=== PATIENT | male | born 1990 ===

== ENCOUNTER 2018-05-17 17:52 | Inpatient (IN) | payer OTHER ==
[2018-05-17 20:23] LABS: BASO # 0.1 K/uL (0.0-0.2); BASO % 0.4 % (0.0-2.0); EOS % 0.1 % (0.0-4.0); HEMOGLOBIN 14.1 g/dL (12.0-18.0); LYMPH # 1.9 K/uL (1.0-4.3); LYMPH % 14.8 % (20.0-40.0); MEAN CELL VOLUME 90.9 fl (80.0-94.0); MEAN CORPUSCULAR HEMOGLOBIN 29.5 pg (27.0-31.0); MEAN CORPUSCULAR HGB CONC 32.5 g/dL (33.0-37.0); MEAN PLATELET VOLUME 9.1 fl (7.2-11.7); MONO # 0.7 K/uL (0.0-0.8); MONO % 5.2 % (0.0-10.0); NEUT # 10.2 K/uL (1.8-7.0); NEUT % 79.5 % (50.0-75.0); RBC 4.79 Mil/uL (4.40-5.90); RED CELL DISTRIBUTION WIDTH 13.7 % (11.5-14.5); WHITE BLOOD COUNT 12.8 K/uL (4.8-10.8)
[2018-05-17 20:36] LABS: BLOOD UREA NITROGEN 14 mg/dl (9-20); CALCIUM 9.8 mg/dL (8.4-10.2); GFR NON-AFRICAN AMERICAN > 60
[2018-05-17 20:39] LABS: ACETAMINOPHEN < 10.0 ug/ml (10.0-30.0); SALICYLATE < 1.0 mg/dl
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
[2018-05-18 01:00] VITALS: O2SAT 98
[2018-05-18 01:22] LABS: URINE BACTERIA RARE (<OCC); URINE BILIRUBIN NEGATIVE (NEGATIVE); URINE BLOOD NEGATIVE (NEGATIVE); URINE CLARITY SLIGHTY-CLOUDY (Clear); URINE COLOR YELLOW (YELLOW); URINE GLUCOSE (UA) NEG (NEGATIVE); URINE LEUKOCYTE ESTERASE NEG Leu/uL (Negative); URINE PROTEIN 30 mg/dL (NEGATIVE)
[2018-05-18 01:35] LABS: BARBITURATES, UR NEGATIVE (NEGATIVE); BENZODIAZEPINES, UR NEGATIVE (NEGATIVE); OPIATES, UR NEGATIVE (NEGATIVE); PHENCYCLIDINE, UR NEGATIVE (NEGATIVE)
[2018-05-18] MEDS ORDERED: Magnesium Hydroxide Susp 30 ml UD PO PRN (02:11)
[2018-05-18] MEDS ORDERED: Alum-Mag Hydrox-Simethicone Susp (30 mL) PO PRN (02:11)
[2018-05-18] MEDS ORDERED: DiphenhydrAMINE 50 mg/ml Inj IM PRN (02:11)
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
--- NOTE | 2018-05-18 08:23 | CARD ---
APPROVED REPORT Date of service: 05/17/2018 EKG Measurement Heart [id number] <Conclusion> Normal sinus rhythm Early repolarization Borderline ECG
[2018-05-18] MEDS ORDERED: Risperidone M tab 1 MG PO STA (11:46)
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
--- NOTE | 2018-05-18 15:13 | CP.PCM.CON ---
History of Present Illness - History of Present Illness History of Present Illness: 27 yo male with history of schizophrenia and schizoaffective DO admitted to psyche unit because of disorganized thoughts and aggressive behaviour. Review of Systems - Review of Systems All systems: reviewed and no additional remarkable complaints except (aside from those mentioned above, 12 point system review were negative by me) Past Patient History - Infectious Disease Hx of Infectious Diseases: None - Past Social History Smoking Status: Never Smoked Chewing Tobacco Use: No Cigar Use: No Alcohol: None Drugs: Denies - CARDIAC Hx Cardiac Disorders: No - PULMONARY Hx Respiratory Disorders: No Hx Tuberculosis: No - NEUROLOGICAL Hx Neurological Disorder: No HX Cerebrovascular Accident: No Hx Seizures: No - HEENT Hx HEENT Problems: No - RENAL Hx Chronic Kidney Disease: No - ENDOCRINE/METABOLIC Hx Endocrine Disorders: No - HEMATOLOGICAL/ONCOLOGICAL Hx Blood Disorders: No Hx Cancer: No Hx Human Immunodeficiency Virus (HIV): No - INTEGUMENTARY Hx Dermatological Problems: No - MUSCULOSKELETAL/RHEUMATOLOGICAL Hx Musculoskeletal Disorders: No - GASTROINTESTINAL Hx Gastrointestinal Disorders: No - GENITOURINARY/GYNECOLOGICAL Hx Genitourinary Disorders: No Hx Sexually Transmitted Disorders: No - PSYCHIATRIC Hx Schizophrenia: Yes - SURGICAL HISTORY Hx Surgeries: Yes Other/Comment: L ear Sx - ANESTHESIA Hx Anesthesia: Yes Hx Anesthesia Reactions: No Meds Allergies/Adverse Reactions: Allergies Allergy/AdvReac Type Severity Reaction Status Date / Time No Known Allergies Allergy Verified 05/17/18 17:53 - Medications Medications: Current Medications Acetaminophen (Tylenol 325mg Tab) 650 mg PO Q4 PRN PRN Reason: Pain, moderate (4-7) Al Hydrox/Mg Hydrox/Simethicone (Maalox Plus 30 Ml) 30 ml PO Q4 PRN PRN Reason: Dyspepsia Benztropine Mesylate (Cogentin) 1 mg PO HS ALBA Diphenhydramine HCl (Benadryl) 50 mg IM Q6 PRN PRN Reason: Extrapyramidal S/S Unable PO Diphenhydramine HCl (Benadryl) 50 mg PO Q6 PRN PRN Reason: Extrapyramidal Symptoms Diphenhydramine HCl (Benadryl) 50 mg PO HS PRN PRN Reason: Sleep Divalproex Sodium (Depakote Er(Once Daily)) 1,000 mg PO HS ALBA Haloperidol (Haldol) 5 mg PO Q4 PRN PRN Reason: Agitation Haloperidol Lactate (Haldol) 5 mg IM Q4 PRN PRN Reason: Agitation, Unable to Take PO Lorazepam (Ativan) 2 mg IM Q4 PRN PRN Reason: Anxiety/Agitation,Unable PO Lorazepam (Ativan) 1 mg PO Q8 PRN PRN Reason: Anxiety/Agitation Magnesium Hydroxide (Milk Of Magnesia) 30 ml PO HS PRN PRN Reason: Constipation Risperidone (Risperdal M-Tab) 2 mg PO HS ALBA Risperidone (Risperdal M-Tab) 1 mg PO DAILY ALBA Physical Exam - Constitutional Appears: No Acute Distress - Head Exam Head Exam: ATRAUMATIC - Eye Exam Eye Exam: absent: Scleral icterus - ENT Exam ENT Exam: Mucous Membranes Moist - Neck Exam Neck exam: Negative for: Meningismus - Respiratory Exam Respiratory Exam: absent: Rales, Rhonchi, Wheezes, Respiratory Distress - Cardiovascular Exam Cardiovascular Exam: REGULAR RHYTHM, +S1, +S2 - GI/Abdominal Exam GI & Abdominal Exam: Soft. absent: Tenderness - Rectal Exam Rectal Exam: Deferred - Neurological Exam Neurological exam: Alert, Oriented x3 - Psychiatric Exam Psychiatric exam: Normal Affect - Skin Skin Exam: Dry, Intact Results - Vital Signs Recent Vital Signs: Last Vital Signs Temp 98.2 F 05/18/18 09:00 Pulse 86 05/18/18 09:00 Resp 18 05/18/18 09:00 BP 132/69 05/18/18 09:00 Pulse Ox 98 05/18/18 00:59 - Labs Result Diagrams: 05/17/18 20:20 05/17/18 20:20 Labs: Laboratory Results - last 24 hr 05/17/18 05/17/18 05/17/18 20:20 20:20 20:20 WBC 12.8 H RBC 4.79 Hgb 14.1 Hct 43.5 MCV 90.9 MCH 29.5 MCHC 32.5 L RDW 13.7 Plt Count 222 MPV 9.1 Neut % (Auto) 79.5 H Lymph % (Auto) 14.8 L [place] % (Auto) 5.2 Eos % (Auto) 0.1 Baso % (Auto) 0.4 Neut # (Auto) 10.2 H Lymph # (Auto) 1.9 [place] # (Auto) 0.7 Eos # (Auto) 0.0 Baso # (Auto) 0.1 Sodium 141 Potassium 3.8 Chloride 105 Carbon Dioxide 12 L Anion Gap 28 H BUN 14 Creatinine 1.1 Est GFR ( Amer) > 60 Est GFR (Non-Af Amer) > 60 Random Glucose 115 H Hemoglobin A1c Calcium 9.8 Triglycerides Cholesterol LDL Cholesterol Direct HDL Cholesterol Thyroxine (T4) TSH 3rd Generation Urine Color Urine Clarity Urine pH Ur Specific [place] Urine Protein Urine Glucose (UA) Urine Ketones Urine Blood Urine Nitrate Urine Bilirubin Urine Urobilinogen Ur Leukocyte Esterase Urine Microscopic WBC Urine Bacteria Hyaline Casts Salicylates < 1.0 Urine Opiates Screen Urine Methadone Screen Acetaminophen < 10.0 L Ur Barbiturates Screen Ur Phencyclidine Scrn Ur Amphetamines Screen U Benzodiazepines Scrn U Oth Cocaine Metabols U Cannabinoids Screen Alcohol, Quantitative < 10 05/18/18 05/18/18 05/18/18 01:08 01:08 08:10 WBC RBC Hgb Hct MCV MCH MCHC RDW Plt Count MPV Neut % (Auto) Lymph % (Auto) [place] % (Auto) Eos % (Auto) Baso % (Auto) Neut # (Auto) Lymph # (Auto) [place] # (Auto) Eos # (Auto) Baso # (Auto) Sodium Potassium Chloride Carbon Dioxide Anion Gap BUN Creatinine Est GFR ( Amer) Est GFR (Non-Af Amer) Random Glucose Hemoglobin A1c Calcium Triglycerides 88 Cholesterol 120 LDL Cholesterol Direct 57 HDL Cholesterol 45 Thyroxine (T4) 9.36 TSH 3rd Generation 4.73 H Urine Color Yellow Urine Clarity Slighty-cloudy Urine pH 6.0 Ur Specific [place] 1.028 Urine Protein 30 Urine Glucose (UA) Neg Urine Ketones Negative Urine Blood Negative Urine Nitrate Negative Urine Bilirubin Negative Urine Urobilinogen 2.0 Ur Leukocyte Esterase Neg Urine Microscopic WBC 4 Urine Bacteria Rare Hyaline Casts 6-10 H Salicylates Urine Opiates Screen Negative Urine Methadone Screen Negative Acetaminophen Ur Barbiturates Screen Negative Ur Phencyclidine Scrn Negative Ur Amphetamines Screen Negative U Benzodiazepines Scrn Negative U Oth Cocaine Metabols Negative U Cannabinoids Screen Negative Alcohol, Quantitative 05/18/18 08:10 WBC RBC Hgb Hct MCV MCH MCHC RDW Plt Count MPV Neut % (Auto) Lymph % (Auto) [place] % (Auto) Eos % (Auto) Baso % (Auto) Neut # (Auto) Lymph # (Auto) [place] # (Auto) Eos # (Auto) Baso # (Auto) Sodium Potassium Chloride Carbon Dioxide Anion Gap BUN Creatinine Est GFR ( Amer) Est GFR (Non-Af Amer) Random Glucose Hemoglobin A1c 5.3 Calcium Triglycerides Cholesterol LDL Cholesterol Direct HDL Cholesterol Thyroxine (T4) TSH 3rd Generation Urine Color Urine Clarity Urine pH Ur Specific [place] Urine Protein Urine Glucose (UA) Urine Ketones Urine Blood Urine Nitrate Urine Bilirubin Urine Urobilinogen Ur Leukocyte Esterase Urine Microscopic WBC Urine Bacteria Hyaline Casts Salicylates Urine Opiates Screen Urine Methadone Screen Acetaminophen Ur Barbiturates Screen Ur Phencyclidine Scrn Ur Amphetamines Screen U Benzodiazepines Scrn U Oth Cocaine Metabols U Cannabinoids Screen Alcohol, Quantitative Assessment & Plan (1) Disorganized thought process Status: Acute Comment: psyche is managing (2) Aggressive behavior Status: Acute Comment: psyche is managing
[2018-05-18] MEDS: Risperidone M TAB 2 MG PO SCH (21:11)
[2018-05-18] MEDS ORDERED: Divalproex 500 mg ER (ONCE DAILY formulation) PO SCH (22:00)
[2018-05-19] MEDS: Risperidone M tab 1 MG PO SCH (09:49)
--- NOTE | 2018-05-19 15:16 | PCM.PYCHPN ---
Psychiatric Progress Note - Psychiatric Progress Note Patient seen today, length of contact: pt evaluated discussed with team chart reviewed Patient Chief Complaint: I want my family to obey god Problems Identified/Issues Discussed: pt on evaluation, anxious, irritable, religiously preoccupied, continues to report auditory hallucination hearing god talking to him, pt presenting with thought blocking , internally preoccupied ,concrete thought process and limited insight into illness denied command hallucinations, denied suicidal or homicidal ideation Medical Problems: pt has hx of schizoaffective disorder, hx of previous hospitalizations but unable to give details DSM 5 Symptoms Update: 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 Medication Change: No Medical Record Reviewed: No Mental Status Examination - Cognitive Function Orientation: Person, Place, Situation Memory: Intact Attention: WNL Concentration: Poor Association: Loose Fund of Knowledge: Poor Decription of patient's judgement and insights: poor insight and judgment - Mood Mood: Anxious - Affect Affect: Constricted - Formal Thought Process Formal Thought Process: Hallucinations, Delusions, Paranoia - Suicidal Ideation Suicidal Ideation: No - Homicidal Ideation Homicidal Ideation: No Goal/Treatment Plan - Goal/Treatment Plan Need for Continued Stay: Severe depression anxiety, Discharge may exacerbated symptoms Progress Toward Problem(s) and Goals/Treatment Plan: risperidone mtab 2mg qhs and 1 mg daily depakote 500mg qhs cogentin 1mg qhs will encourage medication compliance . group and supportive therapy
[2018-05-19] MEDS: Risperidone M TAB 2 MG PO SCH (21:11)
[2018-05-19] MEDS ORDERED: Divalproex 500 mg DR(BID formulation) PO SCH (22:00)
[2018-05-20] MEDS: Risperidone M tab 1 MG PO SCH ×2 (10:03→21:29)
--- NOTE | 2018-05-20 14:13 | PCM.PYCHPN ---
Psychiatric Progress Note - Psychiatric Progress Note Patient seen today, length of contact: pt evaluated discussed with team chart reviewed Patient Chief Complaint: I had a hard time falling asleep yesterday Problems Identified/Issues Discussed: pt on evaluation,reported poor sleep with early insomnia , continues to be religiously preoccupied, continues to report auditory hallucination hearing god talking to him, pt presenting with thought blocking , internally preoccupied ,concrete thought process and limited insight into illness denied command hallucinations, denied suicidal or homicidal ideation Medical Problems: pt has hx of schizoaffective disorder, hx of previous hospitalizations but unable to give details Medication Change: Yes (increase depakote ) Medical Record Reviewed: Yes Mental Status Examination - Cognitive Function Orientation: Person, Place, Situation Memory: Intact Attention: WNL Concentration: Poor Association: Loose Fund of Knowledge: Poor Decription of patient's judgement and insights: poor insight and judgment - Mood Mood: Anxious - Affect Affect: Constricted - Formal Thought Process Formal Thought Process: Hallucinations, Delusions, Paranoia - Suicidal Ideation Suicidal Ideation: No - Homicidal Ideation Homicidal Ideation: No Goal/Treatment Plan - Goal/Treatment Plan Need for Continued Stay: Severe depression anxiety, Discharge may exacerbated symptoms Progress Toward Problem(s) and Goals/Treatment Plan: increase risperidone mtab 3mg qhs and 1 mg daily increase depakote 750mg qhs cogentin 1mg qhs will encourage medication compliance . group and supportive therapy
[2018-05-20] MEDS: Divalproex 250 mg ER (ONCE DAILY formulation) PO SCH (21:28)
[2018-05-21] MEDS: Risperidone M tab 1 MG PO SCH ×2 (09:08→21:10)
--- NOTE | 2018-05-21 12:45 | PCM.PYCHPN ---
Psychiatric Progress Note - Psychiatric Progress Note Patient seen today, length of contact: pt evaluated discussed with team chart reviewed Patient Chief Complaint: I slept better yesterday Problems Identified/Issues Discussed: pt seen in his room, reported improved sleep, pt less intrusive but continues to be religiously pre occupied, constantly reading in the bible , continues to report communicating with god , compliant with medications, no reported side ef fects denied command hallucinations, denied suicidal or homicidal ideation Medical Problems: pt has hx of schizoaffective disorder, hx of previous hospitalizations but unab le to give details DSM 5 Symptoms Update: schizoaffective disorder borderline intellectual function Medication Change: No Medical Record Reviewed: Yes Mental Status Examination - Cognitive Function Orientation: Person, Place, Situation Memory: Intact Attention: WNL Concentration: Poor Association: Loose Fund of Knowledge: Poor Decription of patient's judgement and insights: poor insight and judgment - Mood Mood: Anxious - Affect Affect: Constricted - Formal Thought Process Formal Thought Process: Hallucinations, Delusions, Paranoia - Suicidal Ideation Suicidal Ideation: No - Homicidal Ideation Homicidal Ideation: No Goal/Treatment Plan - Goal/Treatment Plan Need for Continued Stay: Severe depression anxiety, Discharge may exacerbated symptoms Progress Toward Problem(s) and Goals/Treatment Plan: risperidone mtab 3mg qhs and 1 mg daily depakote 750mg qhs cogentin 1mg qhs group and supportive therapy
[2018-05-21] MEDS: Divalproex 250 mg ER (ONCE DAILY formulation) PO SCH (21:10)
[2018-05-22] MEDS: Risperidone M tab 1 MG PO SCH ×2 (08:38→21:05)
--- NOTE | 2018-05-22 13:34 | PCM.PYCHPN ---
Psychiatric Progress Note - Psychiatric Progress Note Patient seen today, length of contact: pt evaluated discussed with team chart reviewed Patient Chief Complaint: where will I go from here Problems Identified/Issues Discussed: pt seen in day room, continues to be religiously pre occupied, constantly reading in the bible , continues to report communicating with god , no reported side effects with increasing risperidone and depakote compliant with medicatio ns, pt reported feeling worried as he knows his mother would not take him back home denied command hallucinations, denied suicidal or homicidal ideation Medical Problems: pt has hx of schizoaffective disorder, hx of previous hospitalizations but unable to give details DSM 5 Symptoms Update: 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 Medication Change: No Medical Record Reviewed: Yes Mental Status Examination - Cognitive Function Orientation: Person, Place, Situation Memory: Intact Attention: WNL Concentration: Poor Association: Loose Fund of Knowledge: Poor Decription of patient's judgement and insights: poor insight and judgment - Mood Mood: Anxious - Affect Affect: Constricted - Formal Thought Process Formal Thought Process: Hallucinations, Delusions, Paranoia - Suicidal Ideation Suicidal Ideation: No - Homicidal Ideation Homicidal Ideation: No Goal/Treatment Plan - Goal/Treatment Plan Need for Continued Stay: Severe depression anxiety, Discharge may exacerbated symptoms Progress Toward Problem(s) and Goals/Treatment Plan: risperidone mtab 3mg qhs and 1 mg daily depakote 750mg qhs cogentin 1mg qhs group and supportive therapy
[2018-05-22] MEDS: Divalproex 250 mg ER (ONCE DAILY formulation) PO SCH (21:05)
[2018-05-23] MEDS: Risperidone M tab 1 MG PO SCH (11:42)
--- NOTE | 2018-05-23 14:41 | PCM.PYCHPN ---
Psychiatric Progress Note - Psychiatric Progress Note Patient seen today, length of contact: pt evaluated discussed with team chart reviewed Patient Chief Complaint: I still have hard time sleeping Problems Identified/Issues Discussed: pt seen in day room, reported decreased sleep with early insomnia, pt continues to present with labile affect with episodes of agitation continues to be religiously pre occupied, constantly reading in the bible , discussed increasing dose of depakote and adding trazodone for insomnia, no reported side effects , encouraged medication compliance , pt reported feeling worried as he knows his mother would not take him back home denied command hallucinations, denied suicidal or homicidal ideation Medical Problems: pt has hx of schizoaffective disorder, hx of previous hospitalizations but unable to give details DSM 5 Symptoms Update: 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 Medication Change: Yes (increase depakote ) Medical Record Reviewed: Yes Mental Status Examination - Cognitive Function Orientation: Person, Place, Situation Memory: Intact Attention: WNL Concentration: Poor Association: Loose Fund of Knowledge: Poor Decription of patient's judgement and insights: poor insight and judgment - Mood Mood: Anxious - Affect Affect: Constricted - Formal Thought Process Formal Thought Process: Hallucinations, Delusions, Paranoia - Suicidal Ideation Suicidal Ideation: No - Homicidal Ideation Homicidal Ideation: No Goal/Treatment Plan - Goal/Treatment Plan Need for Continued Stay: Severe depression anxiety, Discharge may exacerbated symptoms Progress Toward Problem(s) and Goals/Treatment Plan: risperidone mtab 4mg qhs depakote 1000mg qhs cogentin 1mg qhs trazodone 50mg qhs group and supportive therapy
[2018-05-23] MEDS: Risperidone M TAB 2 MG PO SCH (21:07)
[2018-05-23] MEDS: Divalproex 500 mg ER (ONCE DAILY formulation) PO SCH (21:07)
--- NOTE | 2018-05-24 14:57 | PCM.PYCHPN ---
Psychiatric Progress Note - Psychiatric Progress Note Patient seen today, length of contact: pt evaluated discussed with team chart reviewed Patient Chief Complaint: I only need medicine to sleep I do not need any other medicine Problems Identified/Issues Discussed: pt seen in day room, continues to be religously preoccupied, seen constantly reading in the bible, pt presenting with thought blocking and internally preoccupied , continues to report auditory hallucinations hearing god talking to him, pt continues to express homicidal thoughts towards his sister stating if she does not repent he will have to end her life, pt with poor insight into illness requesting to be discharged, pt refusing medication through the day with no insight stating he only takes medications at night just to be able to sleep Medical Problems: pt has hx of schizoaffective disorder, hx of previous hospitalizations but unable to give details DSM 5 Symptoms Update: schizoaffective disorder bipolar type Medication Change: No Medical Record Reviewed: Yes Mental Status Examination - Cognitive Function Orientation: Person, Place, Situation Memory: Intact Attention: WNL Concentration: Poor Association: Loose Fund of Knowledge: Poor Decription of patient's judgement and insights: poor insight and judgment - Mood Mood: Anxious - Affect Affect: Constricted - Formal Thought Process Formal Thought Process: Hallucinations, Delusions, Paranoia - Suicidal Ideation Suicidal Ideation: No - Homicidal Ideation Homicidal Ideation: Yes Goal/Treatment Plan - Goal/Treatment Plan Need for Continued Stay: Severe depression anxiety, Discharge may exacerbated symptoms Progress Toward Problem(s) and Goals/Treatment Plan: pt at current mental status continues to report homicidal ideations towards family members has no insight into illness partially compliant with medications , requesting to be discharged , at current mental status danger to self and others will be referred for screening for involuntary admission for further stabilization risperidone mtab 4mg qhs depakote 1000mg qhs cogentin 1mg qhs trazodone 50mg qhs group and supportive therapy
[2018-05-24] MEDS: Divalproex 500 mg ER (ONCE DAILY formulation) PO SCH (21:25)
[2018-05-24] MEDS: Risperidone M TAB 2 MG PO SCH (21:25)
--- NOTE | 2018-05-25 14:45 | PCM.PYCHPN ---
Psychiatric Progress Note - Psychiatric Progress Note Patient seen today, length of contact: pt evaluated discussed with team chart reviewed Patient Chief Complaint: I follow the commands of god Problems Identified/Issues Discussed: pt evaluated with treatment continues to be religiously preoccupied , with delusional thought process reporting he communicates with god through sign language he draws in the air, pt continues to report that he is a servant of god and thus has to help others to comply with his orders, pt has no insight into his illness, justifying his violence towards his family members as being his duty towards god commands, also has no insight in reference to the need for medications, stating he only takes medications at night to help him sleep but does not believe he i in need for any medicine to help with his current mental status pt refusing medication through the day he denied thoughts of self harm or homicidal ideation on the unit Medical Problems: pt has hx of schizoaffective disorder, hx of previous hospitalizations but unable to give details DSM 5 Symptoms Update: 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 Medication Change: Yes (increase risperidone ) Medical Record Reviewed: Yes Mental Status Examination - Cognitive Function Orientation: Person, Place, Situation Memory: Intact Attention: WNL Concentration: Poor Association: Loose Fund of Knowledge: Poor Decription of patient's judgement and insights: poor insight and judgment - Mood Mood: Anxious - Affect Affect: Constricted - Formal Thought Process Formal Thought Process: Hallucinations, Delusions, Paranoia - Suicidal Ideation Suicidal Ideation: No - Homicidal Ideation Homicidal Ideation: Yes Goal/Treatment Plan - Goal/Treatment Plan Need for Continued Stay: Severe depression anxiety, Discharge may exacerbated symptoms Progress Toward Problem(s) and Goals/Treatment Plan: risperidone mtab 6mg qhs depakote 1000mg qhs / follow up on depakote level cogentin 1mg qhs trazodone 50mg qhs group and supportive therapy pt to be evaluated by JAKOB
[2018-05-25] MEDS: Risperidone M TAB 2 MG PO SCH (21:12)
[2018-05-25] MEDS: Divalproex 500 mg ER (ONCE DAILY formulation) PO SCH (21:12)
--- NOTE | 2018-05-26 14:52 | PCM.PYCHPN ---
Psychiatric Progress Note - Psychiatric Progress Note Patient seen today, length of contact: pt evaluated discussed with team chart reviewed Patient Chief Complaint: when can I leave Problems Identified/Issues Discussed: pt evaluated , requesting to be discharged with limited insight into illness, continues to be religiously preoccupied, talking about god commands to him and his mission on earth to fulfill the commands, patient continues to report homicidal ideations towards family members justifying them by stating they deserved to be punished as they do not repent, both the mother and sister have verbalized being concerned about their safety due to the repetitive violence of the patient towards them pt presenting with thought blocking and at times appears internally preoccupied continues to have auditory hallucinations, he also continues to refuse AM medications as he does not have insight into his need for psychiatric treatment he denied thoughts of self harm or homicidal ideation on the unit Medical Problems: pt has hx of schizoaffective disorder, hx of previous hospitalizations but unable to give details DSM 5 Symptoms Update: 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 Medication Change: No Medical Record Reviewed: Yes Mental Status Examination - Cognitive Function Orientation: Person, Place, Situation Memory: Intact Attention: WNL Concentration: Poor Association: Loose Fund of Knowledge: Poor Decription of patient's judgement and insights: poor insight and judgment - Mood Mood: Anxious - Affect Affect: Constricted - Formal Thought Process Formal Thought Process: Hallucinations, Delusions, Paranoia - Suicidal Ideation Suicidal Ideation: No - Homicidal Ideation Homicidal Ideation: Yes Goal/Treatment Plan - Goal/Treatment Plan Need for Continued Stay: Severe depression anxiety, Discharge may exacerbated symptoms Progress Toward Problem(s) and Goals/Treatment Plan: pt continues to be danger to others, continues to verbalize homicidal thoughts,requesting to be discharged , has no insight into illness will be referred for screening for involuntary admission risperidone mtab 6mg qhs depakote 1000mg qhs / depakote level 67 cogentin 1mg qhs trazodone 50mg qhs group and supportive therapy
[2018-05-26 20:43] LABS: URINE BILIRUBIN NEGATIVE (NEGATIVE); URINE BLOOD NEGATIVE (NEGATIVE); URINE CLARITY CLEAR (Clear); URINE COLOR YELLOW (YELLOW); URINE GLUCOSE (UA) NEG (NEGATIVE); URINE LEUKOCYTE ESTERASE NEG Leu/uL (Negative); URINE PROTEIN NEGATIVE (NEGATIVE)
[2018-05-26 21:05] LABS: ALB/GLOB RATIO 1.5 (1.0-2.1); ALBUMIN 4.5 g/dL (3.5-5.0); ALT/SGPT 27 U/L (21-72); AST/SGOT 19 U/L (17-59); BLOOD UREA NITROGEN 16 mg/dl (9-20); CALCIUM 9.2 mg/dL (8.4-10.2); GFR NON-AFRICAN AMERICAN > 60
[2018-05-26 21:07] LABS: BASO # 0.1 K/uL (0.0-0.2); BASO % 0.8 % (0.0-2.0); EOS # 0.1 K/uL (0.0-0.7); EOS % 1.1 % (0.0-4.0); HEMOGLOBIN 14.2 g/dL (12.0-18.0); LYMPH # 2.6 K/uL (1.0-4.3); LYMPH % 29.6 % (20.0-40.0); MEAN CELL VOLUME 88.4 fl (80.0-94.0); MEAN PLATELET VOLUME 9.2 fl (7.2-11.7); MONO # 0.7 K/uL (0.0-0.8); NEUT # 5.3 K/uL (1.8-7.0); NEUT % 60.5 % (50.0-75.0); NRBC % 0.5 % (0.0-0.0); RBC 4.75 Mil/uL (4.40-5.90); RED CELL DISTRIBUTION WIDTH 13.7 % (11.5-14.5); WHITE BLOOD COUNT 8.8 K/uL (4.8-10.8)
[2018-05-26] MEDS: Risperidone M TAB 2 MG PO SCH (21:25)
[2018-05-26] MEDS: Divalproex 500 mg ER (ONCE DAILY formulation) PO SCH (21:25)
--- NOTE | 2018-05-27 18:29 | PCM.PYCHPN ---
Psychiatric Progress Note - Psychiatric Progress Note Patient seen today, length of contact: pt evaluated discussed with team chart reviewed Patient Chief Complaint: does not know why i am in the hospital i do not want mental illness Problems Identified/Issues Discussed: alteration in cognition alteration in mood alteration in self care Medical Problems: per chart Diagnostic Results: per psychiatry per medicine per nursing per social work per recreational therapy Medication Change: No Medical Record Reviewed: Yes Consults ordered or reviewed: pt seen by hospitalist Mental Status Examination - Cognitive Function Orientation: Person, Place, Situation Memory: Intact Attention: WNL Concentration: Poor Association: Loose Fund of Knowledge: Poor - Mood Mood: Anxious - Affect Affect: Constricted - Formal Thought Process Formal Thought Process: Hallucinations, Delusions, Paranoia - Suicidal Ideation Suicidal Ideation: No - Homicidal Ideation Homicidal Ideation: Yes Goal/Treatment Plan - Goal/Treatment Plan Need for Continued Stay: Severe depression anxiety, Discharge may exacerbated symptoms Progress Toward Problem(s) and Goals/Treatment Plan: inpt milieu adjust meds per status team is attempting communication with family related to discharge planning team Estimated Date of D/C: 06/01/18 - Smoking Cessation Smoking Cessation Initiated: No Reason for not providing: pt defer
[2018-05-27] MEDS: Divalproex 500 mg ER (ONCE DAILY formulation) PO SCH (21:05)
[2018-05-27] MEDS: Risperidone M TAB 2 MG PO SCH (21:05)
--- NOTE | 2018-05-28 08:38 | PCM.PYCHPN ---
Psychiatric Progress Note - Psychiatric Progress Note Patient seen today, length of contact: Pt evaluated, case discussed w/ team, chart reviewed Patient Chief Complaint: "Yonathan told me 2 be silent." Problems Identified/Issues Discussed: Patient continues to be bizarre, religiously preoccupied, internally preoccupied, observed laughing to himself. Patient met with the entry writer, but refused to talk, just shaking his head yes and no and wrote down: "Yonathan told me 2 be silent." He denies acute ideation to harm himself or his family. Medication Change: No Medical Record Reviewed: Yes Consults ordered or reviewed: Medicine consult Mental Status Examination - Cognitive Function Orientation: Person, Place, Situation Memory: Intact Decription of patient's judgement and insights: Poor I/J - Affect Affect: Other (Labile) - Formal Thought Process Formal Thought Process: Hallucinations, Delusions, Paranoia Psychotic Thoughts and Behaviors: +Church preoccupation - Suicidal Ideation Suicidal Ideation: No - Homicidal Ideation Homicidal Ideation: No Goal/Treatment Plan - Goal/Treatment Plan Need for Continued Stay: Remain at risks for inpatient hospitalization, Severe depression anxiety, Discharge may exacerbated symptoms Progress Toward Problem(s) and Goals/Treatment Plan: Schizoaffective Disorder -Continue current medications -Individual and group therapy -Medicine consult -Psychoeducation -Disposition planning
[2018-05-28] MEDS: Risperidone M TAB 2 MG PO SCH (21:01)
[2018-05-28] MEDS: Divalproex 500 mg ER (ONCE DAILY formulation) PO SCH (21:01)
--- NOTE | 2018-05-29 08:44 | PCM.PYCHPN ---
Psychiatric Progress Note - Psychiatric Progress Note Patient seen today, length of contact: Pt evaluated, case discussed w/ team, chart reviewed Patient Chief Complaint: Mormonism preoccupation Problems Identified/Issues Discussed: Patient refusing to talk but wrote a note saying that he can not speak until instructed by his father (God). Patient continues to be bizarre, religiously preoccupied, internally preoccupied, observed laughing to himself. Medication Change: No Medical Record Reviewed: Yes Consults ordered or reviewed: Medicine consult Mental Status Examination - Cognitive Function Orientation: Person, Place, Situation Memory: Intact Decription of patient's judgement and insights: Poor I/J - Affect Affect: Other (Labile) - Formal Thought Process Formal Thought Process: Hallucinations, Delusions, Paranoia Psychotic Thoughts and Behaviors: +Mormonism preoccupation - Suicidal Ideation Suicidal Ideation: No - Homicidal Ideation Homicidal Ideation: No Goal/Treatment Plan - Goal/Treatment Plan Need for Continued Stay: Remain at risks for inpatient hospitalization, Severe depression anxiety, Discharge may exacerbated symptoms Progress Toward Problem(s) and Goals/Treatment Plan: Schizoaffective Disorder -Continue current medications -Individual and group therapy -Medicine consult -Psychoeducation -Disposition planning
[2018-05-29] MEDS: Divalproex 500 mg ER (ONCE DAILY formulation) PO SCH (21:05)
[2018-05-29] MEDS: Risperidone M TAB 2 MG PO SCH (21:06)
--- NOTE | 2018-05-30 18:57 | PCM.PYCHPN ---
Psychiatric Progress Note - Psychiatric Progress Note Patient seen today, length of contact: Pt evaluated, case discussed w/ team, chart reviewed Patient Chief Complaint: does not know why i am in the hospital i do not want mental illness prefers to be addressed as "yash" Problems Identified/Issues Discussed: alteration in cognition alteration in mood alteration in self care Medical Problems: per chart Diagnostic Results: per psychiatry per medicine per nursing per social work per recreational therapy DSM 5 Symptoms Update: appears to be reaching baseline team attempting to arrange discharge planning with family Medication Change: No Medical Record Reviewed: Yes Consults ordered or reviewed: pt seen by hospitalist Mental Status Examination - Cognitive Function Orientation: Person, Place, Situation Memory: Impaired Attention: Poor Concentration: Poor Association: Loose Fund of Knowledge: Poor Decription of patient's judgement and insights: poor - Mood Mood: Anxious - Affect Affect: Other (Labile) - Formal Thought Process Formal Thought Process: Hallucinations, Delusions, Paranoia - Suicidal Ideation Suicidal Ideation: No - Homicidal Ideation Homicidal Ideation: No Goal/Treatment Plan - Goal/Treatment Plan Need for Continued Stay: Remain at risks for inpatient hospitalization, Severe depression anxiety, Discharge may exacerbated symptoms Progress Toward Problem(s) and Goals/Treatment Plan: inpt milieu adjust meds per status team is attempting communication with family related to discharge planning team Estimated Date of D/C: 06/01/18 - Smoking Cessation Smoking Cessation Initiated: No Reason for not providing: pt defers
[2018-05-30] MEDS: Divalproex 500 mg ER (ONCE DAILY formulation) PO SCH (21:16)
[2018-05-30] MEDS: Risperidone M TAB 2 MG PO SCH (21:16)
--- NOTE | 2018-05-31 14:12 | PCM.PYCHPN ---
Psychiatric Progress Note - Psychiatric Progress Note Patient seen today, length of contact: Pt evaluated, case discussed w/ team, chart reviewed Patient Chief Complaint: I only speak to people, my father ( god ) allow me to talk to Problems Identified/Issues Discussed: pt on evaluation, stated that he agrees to talk to the inspector automatic typewriter only because his father ; god allowed him to talk , stated he is selectively mute with others, based on orders he gets from god, pt continues to be religiously pre occupied stating he obeys god because he is very fearful when he thinks about hell and possibility of being in it, pt continues to have episodes of thought blocking and requested from the inspector automatic typewriter to read the note he handled the art therapist the content of which was all islam about angels and demons and indicating that pt continues to have non command auditory hallucinations pt continues to have limited insight into his illness and about his need for medications Medical Problems: pt has hx of schizoaffective disorder, hx of previous hospitalizations but unable to give details DSM 5 Symptoms Update: 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 Medication Change: Yes (start haldol) Medical Record Reviewed: Yes Mental Status Examination - Cognitive Function Orientation: Person, Place, Situation Memory: Impaired Attention: WNL Concentration: Poor Association: Loose Fund of Knowledge: Poor Decription of patient's judgement and insights: poor insight and judgment - Mood Mood: Anxious - Affect Affect: Other (Labile) Additional comments: labile - Speech Additional comments: selective mutism - Formal Thought Process Formal Thought Process: Hallucinations, Delusions, Paranoia - Suicidal Ideation Suicidal Ideation: No - Homicidal Ideation Homicidal Ideation: No Goal/Treatment Plan - Goal/Treatment Plan Need for Continued Stay: Remain at risks for inpatient hospitalization, Severe depression anxiety, Discharge may exacerbated symptoms Progress Toward Problem(s) and Goals/Treatment Plan: discontinue risperidone start haldol 10mg qhs follow up on depakote level and adjust dose accordingly Estimated Date of D/C: 06/01/18
[2018-05-31] MEDS: Divalproex 500 mg ER (ONCE DAILY formulation) PO SCH (21:22)
--- NOTE | 2018-06-01 15:23 | PCM.PYCHPN ---
Psychiatric Progress Note - Psychiatric Progress Note Patient seen today, length of contact: Pt evaluated, case discussed w/ team, chart reviewed Patient Chief Complaint: god told me I can talk today Problems Identified/Issues Discussed: pt evaluated with treatment team, less irritable and communicating more with staff, continues to be religiously preoccupied, with fixed delusion about conveying god messages to others, no reported side effects of haldol pt continues to have limited insight into his illness and about his need for medications Medical Problems: pt has hx of schizoaffective disorder, hx of previous hospitalizations but unable to give details DSM 5 Symptoms Update: 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 Medication Change: No Medical Record Reviewed: Yes Mental Status Examination - Cognitive Function Orientation: Person, Place, Situation Memory: Impaired Attention: WNL Concentration: Poor Association: Loose Fund of Knowledge: Poor Decription of patient's judgement and insights: poor insight and judgment - Mood Mood: Anxious - Affect Affect: Other (Labile) - Formal Thought Process Formal Thought Process: Hallucinations, Delusions, Paranoia - Suicidal Ideation Suicidal Ideation: No - Homicidal Ideation Homicidal Ideation: No Goal/Treatment Plan - Goal/Treatment Plan Need for Continued Stay: Remain at risks for inpatient hospitalization, Severe depression anxiety, Discharge may exacerbated symptoms Progress Toward Problem(s) and Goals/Treatment Plan: start haldol 10mg qhs, cogentin 1mg qhs follow up on depakote level and adjust dose accordingly Estimated Date of D/C: 06/17/18
[2018-06-01] MEDS: Divalproex 500 mg ER (ONCE DAILY formulation) PO SCH (21:03)
--- NOTE | 2018-06-02 13:01 | PCM.PYCHPN ---
Psychiatric Progress Note - Psychiatric Progress Note Patient seen today, length of contact: Pt evaluated, case discussed w/ team, chart reviewed Patient Chief Complaint: pt on evaluation less irritable and less labile, continues to be psychotic with roman catholic pre occupation, stating that both his mother and sister are not his biological family but he belongs to the holy family, continues to have episodes of thought blocking , denied command hallucinations, communicating more with staff members and peers, no observed changes in sleep or appetite pt denied current active suicidal or homicidal thoughts Problems Identified/Issues Discussed: pt evaluated with treatment team, less irritable and communicating more with staff, continues to be religiously preoccupied, with fixed delusion about conveying god messages to others, no reported side effects of haldol pt continues to have limited insight into his illness and about his need for medications Medical Problems: pt has hx of schizoaffective disorder, hx of previous hospitalizations but unable to give details DSM 5 Symptoms Update: schizoaffective disorder borderline intellectual function Medication Change: Yes (increase haldol) Medical Record Reviewed: Yes Mental Status Examination - Cognitive Function Orientation: Person, Place, Situation Memory: Impaired Attention: WNL Concentration: Poor Association: Loose Fund of Knowledge: Poor Decription of patient's judgement and insights: poor insight and judgment - Mood Mood: Anxious - Affect Affect: Other (Labile) - Formal Thought Process Formal Thought Process: Hallucinations, Delusions, Paranoia - Suicidal Ideation Suicidal Ideation: No - Homicidal Ideation Homicidal Ideation: No Goal/Treatment Plan - Goal/Treatment Plan Need for Continued Stay: Remain at risks for inpatient hospitalization, Severe depression anxiety, Discharge may exacerbated symptoms Progress Toward Problem(s) and Goals/Treatment Plan: increase haldol 15mg qhs, cogentin 1mg qhs depakote level 109/ decrease dose to 750mg qhs monitor pt for psychopharmacological effect and side effect profile disposition planning Estimated Date of D/C: 06/17/18
[2018-06-02] MEDS: Divalproex 250 mg ER (ONCE DAILY formulation) PO SCH (21:30)
--- NOTE | 2018-06-03 12:28 | PCM.PYCHPN ---
Psychiatric Progress Note - Psychiatric Progress Note Patient seen today, length of contact: Pt evaluated, case discussed w/ team, chart reviewed Patient Chief Complaint: I wish I could go home but I know I cant Problems Identified/Issues Discussed: pt evaluated , calmer, less labile, better communication with staff members and other peers, no reported changes in sleep or appetite, pt continues to have the fixed delusion that his job on earth is to have god's plans fulfilled and it is his duty to help his family members to repent, , continued to challenge those delusions with pt, also was able to arrange for the patient to meet with the hospital [facility] as he requested , pt denied current suicidal or homicidal ideation, denied command hallucinations , continues to have limited insight into his illness and about his need for medications Medical Problems: pt has hx of schizoaffective disorder, hx of previous hospitalizations but unable to give details DSM 5 Symptoms Update: schizoaffective disorder borderline intellectual function Medication Change: No Medical Record Reviewed: Yes Mental Status Examination - Cognitive Function Orientation: Person, Place, Situation Memory: Impaired Attention: WNL Concentration: Poor Association: Loose Fund of Knowledge: Poor Decription of patient's judgement and insights: poor insight and judgment - Mood Mood: Anxious - Affect Affect: Other (Labile) - Formal Thought Process Formal Thought Process: Hallucinations, Delusions, Paranoia - Suicidal Ideation Suicidal Ideation: No - Homicidal Ideation Homicidal Ideation: No Goal/Treatment Plan - Goal/Treatment Plan Need for Continued Stay: Remain at risks for inpatient hospitalization, Severe depression anxiety, Discharge may exacerbated symptoms Progress Toward Problem(s) and Goals/Treatment Plan: haldol 15mg qhs, cogentin 1mg qhs depakote 750mg qhs monitor pt for psychopharmacological effect and side effect profile disposition planning Estimated Date of D/C: 06/17/18
[2018-06-03] MEDS: Divalproex 250 mg ER (ONCE DAILY formulation) PO SCH (21:11)
--- NOTE | 2018-06-04 10:26 | PCM.PYCHPN ---
Psychiatric Progress Note - Psychiatric Progress Note Patient seen today, length of contact: Pt evaluated, case discussed w/ team, chart reviewed Patient Chief Complaint: pt has remained internally preoccupied and paranoid with fixed delusion that he is special person and sent on earth for a mission.pt remains with poor insight and poor judgement and need further stabilization. Medication Change: No Medical Record Reviewed: Yes Mental Status Examination - Cognitive Function Orientation: Person, Place, Situation Memory: Impaired Attention: WNL Concentration: Poor Association: Loose Fund of Knowledge: Poor - Mood Mood: Anxious - Affect Affect: Other (Labile) - Formal Thought Process Formal Thought Process: Hallucinations, Delusions, Paranoia - Suicidal Ideation Suicidal Ideation: No - Homicidal Ideation Homicidal Ideation: No Goal/Treatment Plan - Goal/Treatment Plan Need for Continued Stay: Remain at risks for inpatient hospitalization, Severe depression anxiety, Discharge may exacerbated symptoms Progress Toward Problem(s) and Goals/Treatment Plan: will continue to stabilize the pt on depakote and haldol and engage pt in therapy and groups. d/c plans as per dr leonardo. Estimated Date of D/C: 06/17/18
[2018-06-04] MEDS: Divalproex 250 mg ER (ONCE DAILY formulation) PO SCH (21:02)
--- NOTE | 2018-06-05 13:51 | PCM.PYCHPN ---
Psychiatric Progress Note - Psychiatric Progress Note Patient seen today, length of contact: Pt evaluated, case discussed w/ team, chart reviewed Patient Chief Complaint: pt has remained internally preoccupied with negative thoughts and as per family pt is still talking about hearing voices telling him to hurt the sister and therefore remains on 1:1 observation .pt has remained paranoid with fixed delusion that he is special person and sent on earth for a mission.pt remains with poor insight and poor judgement and need further stabilization. Medication Change: No Medical Record Reviewed: Yes Mental Status Examination - Cognitive Function Orientation: Person, Place, Situation Memory: Impaired Attention: WNL Concentration: Poor Association: Loose Fund of Knowledge: Poor - Mood Mood: Anxious - Affect Affect: Other (Labile) - Formal Thought Process Formal Thought Process: Hallucinations, Delusions, Paranoia - Suicidal Ideation Suicidal Ideation: No - Homicidal Ideation Homicidal Ideation: No Goal/Treatment Plan - Goal/Treatment Plan Need for Continued Stay: Remain at risks for inpatient hospitalization, Severe depression anxiety, Discharge may exacerbated symptoms Progress Toward Problem(s) and Goals/Treatment Plan: will continue to stabilize the pt on depakote and haldol and increase haldol to 5 mg daily and 15 mg hs to address the hallucinations and engage pt in therapy and groups. d/c plans as per dr leonardo. Estimated Date of D/C: 06/17/18
[2018-06-05] MEDS: Divalproex 250 mg ER (ONCE DAILY formulation) PO SCH (21:03)
--- NOTE | 2018-06-06 14:50 | PCM.PYCHPN ---
Psychiatric Progress Note - Psychiatric Progress Note Patient seen today, length of contact: Pt evaluated, case discussed w/ team, chart reviewed Patient Chief Complaint: I know god may want to end my life here Problems Identified/Issues Discussed: pt evaluated , and treatment plan discussed with mother [phone] upon pt consent pt on evaluation continues to report having direct communication with god, continues to have fixed amish delusions , also continues to think that it is his role to make sure his family members are following god demands pt denied command hallucinations , continues to have limited insight into his illness and about his need for medications Medical Problems: pt has hx of schizoaffective disorder, hx of previous hospitalizations but unable to give details DSM 5 Symptoms Update: schizoaffective disorder borderline intellectual function Medication Change: Yes (increase haldol) Medical Record Reviewed: Yes Mental Status Examination - Cognitive Function Orientation: Person, Place, Situation Memory: Impaired Attention: WNL Concentration: Poor Association: Loose Fund of Knowledge: Poor - Mood Mood: Anxious - Affect Affect: Other (Labile) - Formal Thought Process Formal Thought Process: Hallucinations, Delusions, Paranoia - Suicidal Ideation Suicidal Ideation: No - Homicidal Ideation Homicidal Ideation: No Goal/Treatment Plan - Goal/Treatment Plan Need for Continued Stay: Remain at risks for inpatient hospitalization, Severe depression anxiety, Discharge may exacerbated symptoms Progress Toward Problem(s) and Goals/Treatment Plan: increase haldol 20mg qhs, cogentin 1mg qhs depakote 750mg qhs monitor pt for psychopharmacological effect and side effect profile disposition planning Estimated Date of D/C: 06/17/18
[2018-06-06] MEDS: Divalproex 250 mg ER (ONCE DAILY formulation) PO SCH (21:02)
--- NOTE | 2018-06-07 14:57 | PCM.PYCHPN ---
Psychiatric Progress Note - Psychiatric Progress Note Patient seen today, length of contact: Pt evaluated, case discussed w/ team, chart reviewed Patient Chief Complaint: I WORRY THAT MY FAMILY IS TAKING THE WRONG PATH Problems Identified/Issues Discussed: pt evaluated , mother's reported concerns about him stating that he is lonely and that his father wants him to , pt reported feeling sad that he has to stay in the hospital as his family wouldn't take him home, he also stated feeling worried about his family as thay do not obey god, discussed with pt the need to concentrate on self behaviour and recovery, pt continues to have fixed nondenominational delusions but exhibiting better impulse control pt denied command hallucinations , denied suicidal or homicidal ideation continues to have limited insight into his illness and about his need for medications Medical Problems: pt has hx of schizoaffective disorder, hx of previous hospitalizations but unable to give details DSM 5 Symptoms Update: schizoaffective disorder borderline intellectual function Medication Change: No Medical Record Reviewed: Yes Mental Status Examination - Cognitive Function Orientation: Person, Place, Situation Memory: Impaired Attention: WNL Concentration: Poor Association: WNL Fund of Knowledge: Poor Decription of patient's judgement and insights: poor insight and judgment - Mood Mood: Anxious - Affect Affect: Constricted, Other (Labile) - Speech Speech: Slurred - Formal Thought Process Formal Thought Process: Hallucinations, Delusions, Paranoia - Suicidal Ideation Suicidal Ideation: No - Homicidal Ideation Homicidal Ideation: No Goal/Treatment Plan - Goal/Treatment Plan Need for Continued Stay: Remain at risks for inpatient hospitalization, Severe depression anxiety, Discharge may exacerbated symptoms Progress Toward Problem(s) and Goals/Treatment Plan: haldol 20mg qhs, cogentin 1mg qhs depakote 750mg qhs monitor pt for psychopharmacological effect and side effect profile disposition planning Estimated Date of D/C: 06/17/18
[2018-06-07] MEDS: Divalproex 250 mg ER (ONCE DAILY formulation) PO SCH (21:02)
--- NOTE | 2018-06-08 16:35 | PCM.PYCHPN ---
Psychiatric Progress Note - Psychiatric Progress Note Patient seen today, length of contact: Pt evaluated, case discussed w/ team, chart reviewed Patient Chief Complaint: I wish I handled things differently Problems Identified/Issues Discussed: pt evaluated with treatment team, ondina , reported feeling remorseful about his behaviour with his family pt denied command hallucinations , denied suicidal or homicidal ideation continues to have limited insight into his illness and about his need for medications Medical Problems: pt has hx of schizoaffective disorder, hx of previous hospitalizations but unable to give details Medication Change: No Medical Record Reviewed: Yes Mental Status Examination - Cognitive Function Orientation: Person, Place, Situation Memory: Impaired Attention: WNL Concentration: Poor Association: WNL Fund of Knowledge: Poor Decription of patient's judgement and insights: poor insight and judgment - Mood Mood: Anxious - Affect Affect: Constricted, Other (Labile) - Speech Speech: Slurred - Formal Thought Process Formal Thought Process: Hallucinations, Delusions, Paranoia - Suicidal Ideation Suicidal Ideation: No - Homicidal Ideation Homicidal Ideation: No Goal/Treatment Plan - Goal/Treatment Plan Need for Continued Stay: Remain at risks for inpatient hospitalization, Severe depression anxiety, Discharge may exacerbated symptoms Progress Toward Problem(s) and Goals/Treatment Plan: haldol 20mg qhs, cogentin 1mg qhs depakote 750mg qhs monitor pt for psychopharmacological effect and side effect profile disposition planning Estimated Date of D/C: 06/17/18
[2018-06-08] MEDS: Divalproex 250 mg ER (ONCE DAILY formulation) PO SCH (21:14)
--- NOTE | 2018-06-09 15:36 | PCM.PYCHPN ---
Psychiatric Progress Note - Psychiatric Progress Note Patient seen today, length of contact: Pt evaluated, case discussed w/ team, chart reviewed Patient Chief Complaint: I want to be outside Problems Identified/Issues Discussed: pt evaluated , showing some insight into illness calmer , reported feeling remorseful about his behaviour with his family , continues to be religiously preoccupied pt denied command hallucinations , denied suicidal or homicidal ideation Medical Problems: pt has hx of schizoaffective disorder, hx of previous hospitalizations but unable to give details Medication Change: No Medical Record Reviewed: Yes Mental Status Examination - Cognitive Function Orientation: Person, Place, Situation Memory: Impaired Attention: WNL Concentration: Poor Association: WNL Fund of Knowledge: Poor Decription of patient's judgement and insights: poor insight and judgment - Mood Mood: Anxious - Affect Affect: Constricted, Other (Labile) - Speech Speech: Slurred - Formal Thought Process Formal Thought Process: Hallucinations, Delusions, Paranoia - Suicidal Ideation Suicidal Ideation: No - Homicidal Ideation Homicidal Ideation: No Goal/Treatment Plan - Goal/Treatment Plan Need for Continued Stay: Remain at risks for inpatient hospitalization, Severe depression anxiety, Discharge may exacerbated symptoms Progress Toward Problem(s) and Goals/Treatment Plan: haldol 20mg qhs, cogentin 1mg qhs depakote 750mg qhs monitor pt for psychopharmacological effect and side effect profile disposition planning Estimated Date of D/C: 06/17/18
[2018-06-09] MEDS: Divalproex 250 mg ER (ONCE DAILY formulation) PO SCH (21:07)
--- NOTE | 2018-06-10 15:14 | PCM.PYCHPN ---
Psychiatric Progress Note - Psychiatric Progress Note Patient seen today, length of contact: Pt evaluated, case discussed w/ team, chart reviewed Patient Chief Complaint: I want to go to a safe place Problems Identified/Issues Discussed: pt evaluated ,presenting with calmer affect, reported better mood, attending groups and participating in treatment showing some insight into illness calmer , reported feeling remorseful about his behaviour with his family , continues to be religiously preoccupied pt denied command hallucinations , denied suicidal or homicidal ideation Medical Problems: pt has hx of schizoaffective disorder, hx of previous hospitalizations but unable to give details DSM 5 Symptoms Update: schizoaffective disorder borderline intellectual function Medication Change: No Medical Record Reviewed: Yes Mental Status Examination - Cognitive Function Orientation: Person, Place, Situation Memory: Impaired Attention: WNL Concentration: Poor Association: WNL Fund of Knowledge: Poor Decription of patient's judgement and insights: poor insight and judgment - Mood Mood: Anxious - Affect Affect: Constricted, Other (Labile) - Speech Speech: Slurred - Formal Thought Process Formal Thought Process: Hallucinations, Delusions, Paranoia - Suicidal Ideation Suicidal Ideation: No - Homicidal Ideation Homicidal Ideation: No Goal/Treatment Plan - Goal/Treatment Plan Need for Continued Stay: Remain at risks for inpatient hospitalization, Severe depression anxiety, Discharge may exacerbated symptoms Progress Toward Problem(s) and Goals/Treatment Plan: haldol 20mg qhs, cogentin 1mg qhs depakote 750mg qhs monitor pt for psychopharmacological effect and side effect profile disposition planning Estimated Date of D/C: 06/17/18
[2018-06-10] MEDS: Divalproex 250 mg ER (ONCE DAILY formulation) PO SCH (21:02)
--- NOTE | 2018-06-11 11:57 | PCM.PYCHPN ---
Psychiatric Progress Note - Psychiatric Progress Note Patient seen today, length of contact: Pt evaluated, case discussed w/ team, chart reviewed Patient Chief Complaint: I will take it one day at a time Problems Identified/Issues Discussed: pt evaluated ,observed pacing on the unit presenting with calmer affect, reported better mood,pt reported feeling anxious about his placement after discharge showing some insight into illness calmer , reported feeling re morseful about his behaviour with his family , continues to be religiously preoccupied pt denied command hallucinations , denied suicidal or homicidal ideation Medical Problems: pt has hx of schizoaffective disorder, hx of previous hospitalizations but unable to give details Medication Change: No Medical Record Reviewed: Yes Mental Status Examination - Cognitive Function Orientation: Person, Place, Situation Memory: Impaired Attention: WNL Concentration: Poor Association: WNL Fund of Knowledge: Poor Decription of patient's judgement and insights: poor insight and judgment - Mood Mood: Anxious - Affect Affect: Constricted, Other (Labile) - Speech Speech: Slurred - Formal Thought Process Formal Thought Process: Hallucinations, Delusions, Paranoia - Suicidal Ideation Suicidal Ideation: No - Homicidal Ideation Homicidal Ideation: No Goal/Treatment Plan - Goal/Treatment Plan Need for Continued Stay: Remain at risks for inpatient hospitalization, Severe depression anxiety, Discharge may exacerbated symptoms Progress Toward Problem(s) and Goals/Treatment Plan: haldol 20mg qhs, cogentin 1mg qhs depakote 750mg qhs monitor pt for psychopharmacological effect and side effect profile disposition planning Estimated Date of D/C: 06/17/18
[2018-06-11] MEDS: Divalproex 250 mg ER (ONCE DAILY formulation) PO SCH (21:05)
[2018-06-12 12:37] VITALS: BMI 25.1
--- NOTE | 2018-06-12 12:53 | PCM.PYCHPN ---
Psychiatric Progress Note - Psychiatric Progress Note Patient seen today, length of contact: Pt evaluated, case discussed w/ team, chart reviewed Patient Chief Complaint: My mother said she could not take me home, she is afraid I would repeat my behaviour Problems Identified/Issues Discussed: pt evaluated , presenting with calmer affect, reported better mood,continues to be anxious about his placement after discharge as the family would not accept him home showing some insight into illness calmer , pt denied command hallucinations , denied suicidal or homicidal ideation Medical Problems: pt has hx of schizoaffective disorder, hx of previous hospitalizations but unable to give details DSM 5 Symptoms Update: schizoaffective disorder borderline intellectual function Medication Change: No Medical Record Reviewed: Yes Mental Status Examination - Cognitive Function Orientation: Person, Place, Situation Memory: Impaired Attention: WNL Concentration: Poor Association: WNL Fund of Knowledge: Poor Decription of patient's judgement and insights: poor insight and judgment - Mood Mood: Anxious - Affect Affect: Constricted, Other (Labile) - Speech Speech: Slurred - Formal Thought Process Formal Thought Process: Hallucinations, Delusions, Paranoia - Suicidal Ideation Suicidal Ideation: No - Homicidal Ideation Homicidal Ideation: No Goal/Treatment Plan - Goal/Treatment Plan Need for Continued Stay: Remain at risks for inpatient hospitalization, Severe depression anxiety, Discharge may exacerbated symptoms Progress Toward Problem(s) and Goals/Treatment Plan: haldol 20mg qhs, cogentin 1mg qhs / will start haldol decanoate to ensure compliance on discharge depakote 750mg qhs monitor pt for psychopharmacological effect and side effect profile disposition planning Estimated Date of D/C: 06/17/18
[2018-06-12] MEDS: Divalproex 250 mg ER (ONCE DAILY formulation) PO SCH (21:12)
--- NOTE | 2018-06-13 10:04 | PCM.PYCHPN ---
Psychiatric Progress Note - Psychiatric Progress Note Patient seen today, length of contact: Pt evaluated, case discussed w/ team, chart reviewed Patient Chief Complaint: Hinduism preoccupation Problems Identified/Issues Discussed: Patient is currently calm and cooperative. He is compliant with medication and has improved insight. He continues to have restoration preoccupation and beileves that he has a special relationship with God. No acute behavioral disturbances. Medication Change: No Medical Record Reviewed: Yes Consults ordered or reviewed: Medicine consult Mental Status Examination - Cognitive Function Orientation: Person, Place, Situation Memory: Impaired Decription of patient's judgement and insights: Poor I/J - Mood Mood: Anxious - Affect Affect: Constricted - Speech Speech: Slurred - Formal Thought Process Formal Thought Process: Delusions Psychotic Thoughts and Behaviors: +Hinduism preoccupation; denies acute AH/VH, but seems internally preoccupied at timse - Suicidal Ideation Suicidal Ideation: No - Homicidal Ideation Homicidal Ideation: No Goal/Treatment Plan - Goal/Treatment Plan Need for Continued Stay: Remain at risks for inpatient hospitalization, Discharge may exacerbated symptoms Progress Toward Problem(s) and Goals/Treatment Plan: Schizoaffective Disorder -Continue current medications -Individual and group therapy -Medicine consult -Psychoeducation -Disposition planning
[2018-06-13] MEDS: Divalproex 250 mg ER (ONCE DAILY formulation) PO SCH (21:01)
--- NOTE | 2018-06-14 15:06 | PCM.PYCHPN ---
Psychiatric Progress Note - Psychiatric Progress Note Patient seen today, length of contact: Pt evaluated, case discussed w/ team, chart reviewed Patient Chief Complaint: I will take the injection i it is better for me Problems Identified/Issues Discussed: pt evaluated , reported mood stable, affect appropriate to thought content, pt showing improved impulse control, compliant with treatment, pt agreed to be started on haldol decanoate tomorow to improve compliance , continues to have fixed pentecostal delusions pt denied command hallucinations , denied suicidal or homicidal ideation Medical Problems: pt has hx of schizoaffective disorder, hx of previous hospitalizations but unable to give details DSM 5 Symptoms Update: schizoaffective disorder borderline intellectual dysfunction Medication Change: No Medical Record Reviewed: Yes Mental Status Examination - Cognitive Function Orientation: Person, Place, Situation Memory: Impaired - Mood Mood: Anxious - Affect Affect: Constricted - Speech Speech: Slurred - Formal Thought Process Formal Thought Process: Delusions - Suicidal Ideation Suicidal Ideation: No - Homicidal Ideation Homicidal Ideation: No Goal/Treatment Plan - Goal/Treatment Plan Need for Continued Stay: Remain at risks for inpatient hospitalization, Discharge may exacerbated symptoms Progress Toward Problem(s) and Goals/Treatment Plan: haldol 20mg qhs, cogentin 1mg qhs / will start haldol decanoate to ensure compliance on discharge depakote 750mg qhs monitor pt for psychopharmacological effect and side effect profile disposition planning Estimated Date of D/C: 06/17/18
[2018-06-14] MEDS: Divalproex 250 mg ER (ONCE DAILY formulation) PO SCH (21:04)
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
[2018-06-15] MEDS: Divalproex 250 mg ER (ONCE DAILY formulation) PO SCH (21:25)
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
--- NOTE | 2018-06-16 13:51 | PCM.PYCHPN ---
Psychiatric Progress Note - Psychiatric Progress Note Patient seen today, length of contact: Pt evaluated, case discussed w/ team, chart reviewed Patient Chief Complaint: I will be [age] years old soon Problems Identified/Issues Discussed: pt evaluated, presenting with brighter affect, reported mood better less irritable, no reported side effects with haldol decanoate, no changes in sleep or appetite , attending groups and participating in treatment pt denied command hallucinations , denied suicidal or homicidal ideation Medical Problems: pt has hx of schizoaffective disorder, hx of previous hospitalizations but unable to give details Medication Change: No Medical Record Reviewed: Yes Mental Status Examination - Cognitive Function Orientation: Person, Place, Situation Memory: Impaired Attention: WNL Concentration: WNL Association: WNL Fund of Knowledge: Poor Decription of patient's judgement and insights: partial insight , poor judgment - Mood Mood: Anxious - Affect Affect: Constricted - Speech Speech: Appropriate, Slurred - Formal Thought Process Formal Thought Process: Delusions - Suicidal Ideation Suicidal Ideation: No - Homicidal Ideation Homicidal Ideation: No Goal/Treatment Plan - Goal/Treatment Plan Need for Continued Stay: Remain at risks for inpatient hospitalization, Discharge may exacerbated symptoms Progress Toward Problem(s) and Goals/Treatment Plan: haldol 20mg qhs, cogentin 1mg qhs / haldol decanoate 50mg IM qmonth, irst dose 06/15/18 depakote 750mg qhs monitor pt for psychopharmacological effect and side effect profile disposition planning Estimated Date of D/C: 06/21/18
[2018-06-16] MEDS: Divalproex 250 mg ER (ONCE DAILY formulation) PO SCH (21:07)
--- NOTE | 2018-06-17 13:44 | PCM.PYCHPN ---
Psychiatric Progress Note - Psychiatric Progress Note Patient seen today, length of contact: Pt evaluated, case discussed w/ team, chart reviewed Patient Chief Complaint: I am happy about my birthday Problems Identified/Issues Discussed: pt evaluated, reported mood is fine, appropriate affect , no reported side effects with haldol decanoate, no changes in sleep or appetite , attending groups and participating in treatment , pt continues to have fixed delusions with rastafari pre occupation, continues to have limited ability to care for self due to the borderline intellectual function pt denied command hallucinations , denied suicidal or homicidal ideation Medical Problems: pt has hx of schizoaffective disorder, hx of previous hospitalizations but unable to give details Medication Change: No Medical Record Reviewed: Yes Mental Status Examination - Cognitive Function Orientation: Person, Place, Situation Memory: Impaired Attention: WNL Concentration: WNL Association: WNL Fund of Knowledge: Poor Decription of patient's judgement and insights: partial insight , poor judgment - Mood Mood: Anxious - Affect Affect: Constricted - Speech Speech: Appropriate, Slurred - Formal Thought Process Formal Thought Process: Delusions - Suicidal Ideation Suicidal Ideation: No - Homicidal Ideation Homicidal Ideation: No Goal/Treatment Plan - Goal/Treatment Plan Need for Continued Stay: Remain at risks for inpatient hospitalization, Discharge may exacerbated symptoms Progress Toward Problem(s) and Goals/Treatment Plan: haldol 20mg qhs, cogentin 1mg qhs / haldol decanoate 50mg IM qmonth, irst dose 06/15/18 depakote 750mg qhs disposition planning Estimated Date of D/C: 06/21/18
[2018-06-17] MEDS: Divalproex 250 mg ER (ONCE DAILY formulation) PO SCH (21:12)
--- NOTE | 2018-06-18 14:12 | PCM.PYCHPN ---
Psychiatric Progress Note - Psychiatric Progress Note Patient seen today, length of contact: Pt evaluated, case discussed w/ team, chart reviewed Patient Chief Complaint: does not know why i am in the hospital i do not want mental illness prefers to be addressed as "yash" Problems Identified/Issues Discussed: alteration in cognition alteration in mood alteration in self care Medical Problems: per chart Diagnostic Results: per psychiatry per medicine per nursing per social work per recreational therapy DSM 5 Symptoms Update: some improvement mood Medication Change: No Medical Record Reviewed: Yes Consults ordered or reviewed: pt being followed by medical team Mental Status Examination - Cognitive Function Orientation: Person, Place, Situation Memory: Impaired Attention: WNL Concentration: WNL Association: WNL Fund of Knowledge: Poor - Mood Mood: Anxious - Affect Affect: Constricted - Speech Speech: Appropriate, Slurred - Formal Thought Process Formal Thought Process: Delusions - Suicidal Ideation Suicidal Ideation: No - Homicidal Ideation Homicidal Ideation: No Goal/Treatment Plan - Goal/Treatment Plan Need for Continued Stay: Remain at risks for inpatient hospitalization, Discharge may exacerbated symptoms Progress Toward Problem(s) and Goals/Treatment Plan: inpt milieu adjust meds per status team is attempting communication with family related to discharge planning team Estimated Date of D/C: 06/21/18 - Smoking Cessation Smoking Cessation Initiated: No Reason for not providing: pt defers
[2018-06-18] MEDS: Divalproex 250 mg ER (ONCE DAILY formulation) PO SCH (21:38)
--- NOTE | 2018-06-19 14:09 | PCM.PYCHPN ---
Psychiatric Progress Note - Psychiatric Progress Note Patient seen today, length of contact: Pt evaluated, case discussed w/ team, chart reviewed Patient Chief Complaint: pt seen walking in unit, later seen seated in room, later seen having visit with mother in social area. staff report pt requires prompting for adherence with medication. staff report that pt appears somewhat less religiously preoccupied. pt denies complaints of pain or notable side effects medication. Problems Identified/Issues Discussed: alteration in cognition alteration in mood alteration in self care Medical Problems: per chart Diagnostic Results: per psychiatry per medicine per nursing per social work per recreational therapy DSM 5 Symptoms Update: appears to be reaching baseline neurological status, requires total care, team in process of attempting arrange discharge planning-reportedly mother is unable to have pt return home Medication Change: No Medical Record Reviewed: Yes Consults ordered or reviewed: pt being followed by medical team Mental Status Examination - Cognitive Function Orientation: Person, Place, Situation Memory: Impaired Attention: WNL Concentration: WNL Association: WNL Fund of Knowledge: Poor Decription of patient's judgement and insights: impaired likely baseline - Mood Mood: Anxious Additional comments: admittedly less anxious - Affect Affect: Constricted - Speech Speech: Soft - Formal Thought Process Formal Thought Process: Delusions, Paranoia Psychotic Thoughts and Behaviors: scientologist preoccupation somewhat less - Suicidal Ideation Suicidal Ideation: No - Homicidal Ideation Homicidal Ideation: No Goal/Treatment Plan - Goal/Treatment Plan Need for Continued Stay: Remain at risks for inpatient hospitalization, Discharge may exacerbated symptoms Progress Toward Problem(s) and Goals/Treatment Plan: inpt milieu adjust meds per status vital signs and clinical observation per protocol and per clinical status team is attempting communication with family related to discharge planning/possible alternative placement issues Estimated Date of D/C: 06/24/18 - Smoking Cessation Smoking Cessation Initiated: No Reason for not providing: defers
[2018-06-19] MEDS: Divalproex 250 mg ER (ONCE DAILY formulation) PO SCH (21:05)
--- NOTE | 2018-06-20 14:04 | PCM.PYCHPN ---
Psychiatric Progress Note - Psychiatric Progress Note Patient seen today, length of contact: Pt evaluated, case discussed w/ team, chart reviewed Patient Chief Complaint: I am happy my mother visited Problems Identified/Issues Discussed: pt evaluated, reported good mood, happy he was visited by mother on weekend , appropriate affect , no reported side effects of medications , no changes in sleep or appetite , attending groups and participating in treatment , thought process shows less religion pre occupation, continues to have limited ability to care for self due to the borderline intellectual function pt denied command hallucinations , denied suicidal or homicidal ideation Medical Problems: pt has hx of schizoaffective disorder, hx of previous hospitalizations but unable to give details DSM 5 Symptoms Update: schizoaffective disorder borderline intellectual function Medication Change: No Medical Record Reviewed: Yes Mental Status Examination - Cognitive Function Orientation: Person, Place, Situation Memory: Impaired Attention: WNL Concentration: WNL Association: WNL Fund of Knowledge: Poor - Mood Mood: Anxious - Affect Affect: Constricted - Speech Speech: Soft - Formal Thought Process Formal Thought Process: Delusions, Paranoia - Suicidal Ideation Suicidal Ideation: No - Homicidal Ideation Homicidal Ideation: No Goal/Treatment Plan - Goal/Treatment Plan Need for Continued Stay: Remain at risks for inpatient hospitalization, Discharge may exacerbated symptoms Progress Toward Problem(s) and Goals/Treatment Plan: haldol 20mg qhs, cogentin 1mg qhs / haldol decanoate 50mg IM qmonth, irst dose 06/15/18 depakote 750mg qhs disposition planning Estimated Date of D/C: 06/24/18
[2018-06-20] MEDS: Divalproex 250 mg ER (ONCE DAILY formulation) PO SCH (21:02)
--- NOTE | 2018-06-21 13:32 | PCM.PYCHPN ---
Psychiatric Progress Note - Psychiatric Progress Note Patient seen today, length of contact: Pt evaluated, case discussed w/ team, chart reviewed Patient Chief Complaint: I leave it for god Problems Identified/Issues Discussed: pt evaluated, reported good mood, appropriate affect , no reported side effects of medications , no changes in sleep or appetite , attending groups and participating in treatment , thought process shows less anabaptist pre occupation, continues to have limited ability to care for self due to the borderline intellectual function pt denied command hallucinations , denied suicidal or homicidal ideation Medical Problems: pt has hx of schizoaffective disorder, hx of previous hospitalizations but unable to give details DSM 5 Symptoms Update: borderline intellectual function schizoaffective disorder bipolar Medication Change: No Medical Record Reviewed: Yes Mental Status Examination - Cognitive Function Orientation: Person, Place, Situation Memory: Impaired Attention: WNL Concentration: WNL Association: WNL Fund of Knowledge: Poor - Mood Mood: Anxious - Affect Affect: Constricted - Speech Speech: Soft - Formal Thought Process Formal Thought Process: Delusions, Paranoia - Suicidal Ideation Suicidal Ideation: No - Homicidal Ideation Homicidal Ideation: No Goal/Treatment Plan - Goal/Treatment Plan Need for Continued Stay: Remain at risks for inpatient hospitalization, Discharge may exacerbated symptoms Progress Toward Problem(s) and Goals/Treatment Plan: haldol 20mg qhs, cogentin 1mg qhs / haldol decanoate 50mg IM qmonth, irst dose 06/15/18 depakote 750mg qhs disposition planning Estimated Date of D/C: 06/24/18
[2018-06-21] MEDS: Divalproex 250 mg ER (ONCE DAILY formulation) PO SCH (21:10)
--- NOTE | 2018-06-22 14:28 | PCM.PYCHPN ---
Psychiatric Progress Note - Psychiatric Progress Note Patient seen today, length of contact: Pt evaluated, case discussed w/ team, chart reviewed Patient Chief Complaint: I am the son of Estefania Problems Identified/Issues Discussed: pt evaluated, reported mood is sad at times due to long stay in the hospital , affect constricted, continues to verbalize fixed delusions of gnosticism theme , pt however has been calm, no reported episodes of agitation or aggresion, c ompliant with treatment , no changes in sleep or appetite , attending groups continues to have limited ability to care for self due to the borderline intellectual function pt denied command hallucinations , denied suicidal or homicidal ideation Medical Problems: pt has hx of schizoaffective disorder, hx of previous hospitalizations but unable to give details DSM 5 Symptoms Update: 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 Medication Change: No Medical Record Reviewed: Yes Mental Status Examination - Cognitive Function Orientation: Person, Place, Situation Memory: Impaired Attention: WNL Concentration: WNL Association: WNL Fund of Knowledge: Poor - Mood Mood: Anxious - Affect Affect: Constricted - Speech Speech: Soft - Formal Thought Process Formal Thought Process: Delusions - Suicidal Ideation Suicidal Ideation: No - Homicidal Ideation Homicidal Ideation: No Goal/Treatment Plan - Goal/Treatment Plan Need for Continued Stay: Remain at risks for inpatient hospitalization, Discharge may exacerbated symptoms Progress Toward Problem(s) and Goals/Treatment Plan: haldol 20mg qhs, cogentin 1mg qhs / haldol decanoate 50mg IM qmonth,first dose 06/15/18 depakote 750mg qhs disposition planning Estimated Date of D/C: 06/24/18
[2018-06-22] MEDS: Divalproex 250 mg ER (ONCE DAILY formulation) PO SCH (21:05)
--- NOTE | 2018-06-23 13:21 | PCM.PYCHPN ---
Psychiatric Progress Note - Psychiatric Progress Note Patient seen today, length of contact: Pt evaluated, case discussed w/ team, chart reviewed Patient Chief Complaint: I am hopeful about the meeting tomorrow Problems Identified/Issues Discussed: pt evaluated,reported feeling hopeful about meeting scheduled tomorrow for possible placement , o reported changes in sleep or appetite, attending groups, no reported episodes of agitation, continues to have fixed taoist delusions pt denied command hallucinations , denied suicidal or homicidal ideation Medical Problems: pt has hx of schizoaffective disorder, hx of previous hospitalizations but unable to give details DSM 5 Symptoms Update: schizoaffective disorder bipolar Medication Change: No Medical Record Reviewed: Yes Mental Status Examination - Cognitive Function Orientation: Person, Place, Situation Memory: Impaired Attention: WNL Concentration: WNL Association: WNL Fund of Knowledge: Poor - Mood Mood: Anxious - Affect Affect: Constricted - Speech Speech: Soft - Formal Thought Process Formal Thought Process: Delusions - Suicidal Ideation Suicidal Ideation: No - Homicidal Ideation Homicidal Ideation: No Goal/Treatment Plan - Goal/Treatment Plan Need for Continued Stay: Remain at risks for inpatient hospitalization, Discharge may exacerbated symptoms Progress Toward Problem(s) and Goals/Treatment Plan: haldol 20mg qhs, cogentin 1mg qhs / haldol decanoate 50mg IM qmonth,first dose 06/15/18 depakote 750mg qhs disposition planning Estimated Date of D/C: 06/24/18
[2018-06-23] MEDS: Divalproex 250 mg ER (ONCE DAILY formulation) PO SCH (21:32)
--- NOTE | 2018-06-24 14:14 | PCM.PYCHPN ---
Psychiatric Progress Note - Psychiatric Progress Note Patient seen today, length of contact: Pt evaluated, case discussed w/ team, chart reviewed Patient Chief Complaint: I am anxious about today's meeting Problems Identified/Issues Discussed: pt evaluated,stated feeling anxious about today,s meeting scheduled for possible placement , no reported changes in sleep or appetite, attending groups, no reported episodes of agitation, continues to have fixed latter-day delusions pt denied command hallucinations , denied suicidal or homicidal ideation Medical Problems: pt has hx of schizoaffective disorder, hx of previous hospitalizations but unable to give details DSM 5 Symptoms Update: schizoaffective disorder borderline intellectual function Medication Change: No Medical Record Reviewed: Yes Mental Status Examination - Cognitive Function Orientation: Person, Place, Situation Memory: Impaired Attention: WNL Concentration: WNL Association: WNL Fund of Knowledge: Poor - Mood Mood: Anxious - Affect Affect: Constricted - Speech Speech: Soft - Formal Thought Process Formal Thought Process: Delusions - Suicidal Ideation Suicidal Ideation: No - Homicidal Ideation Homicidal Ideation: No Goal/Treatment Plan - Goal/Treatment Plan Need for Continued Stay: Remain at risks for inpatient hospitalization, Discharge may exacerbated symptoms Progress Toward Problem(s) and Goals/Treatment Plan: haldol 20mg qhs, cogentin 1mg qhs / haldol decanoate 50mg IM qmonth,first dose 06/15/18 depakote 750mg qhs disposition planning Estimated Date of D/C: 06/24/18
[2018-06-24] MEDS: Divalproex 250 mg ER (ONCE DAILY formulation) PO SCH (21:43)
--- NOTE | 2018-06-25 08:45 | PCM.PYCHPN ---
Psychiatric Progress Note - Psychiatric Progress Note Patient seen today, length of contact: Pt evaluated, case discussed w/ team, chart reviewed Patient Chief Complaint: pt has remained very guarded and internally preoccupied .pt has remained paranoid with fixed delusion that he is special person and sent [place] for a mission.pt remains with poor insight and poor judgement and need further stabilization. Medication Change: No Medical Record Reviewed: Yes Mental Status Examination - Cognitive Function Orientation: Person, Place, Situation Memory: Impaired Attention: WNL Concentration: WNL Association: WNL Fund of Knowledge: Poor - Mood Mood: Anxious - Affect Affect: Constricted - Speech Speech: Soft - Formal Thought Process Formal Thought Process: Delusions - Suicidal Ideation Suicidal Ideation: No - Homicidal Ideation Homicidal Ideation: No Goal/Treatment Plan - Goal/Treatment Plan Need for Continued Stay: Remain at risks for inpatient hospitalization, Discharge may exacerbated symptoms Progress Toward Problem(s) and Goals/Treatment Plan: will continue to stabilize the pt on depakote and haldol and titrate as needed to address the hallucinations and engage pt in therapy and groups. d/c plans as per dr leonardo. Estimated Date of D/C: 06/24/18
[2018-06-25] MEDS: Divalproex 250 mg ER (ONCE DAILY formulation) PO SCH (21:28)
--- NOTE | 2018-06-26 14:24 | PCM.PYCHPN ---
Psychiatric Progress Note - Psychiatric Progress Note Patient seen today, length of contact: Pt evaluated, case discussed w/ team, chart reviewed Patient Chief Complaint: pt has been less depressed and less anxious but has remained very guarded and internally preoccupied .pt has remained paranoid with fixed delusion that he is special person and sent on [place] for a mission.pt remains with poor insight and poor judgement and need further stabilization. Medication Change: No Medical Record Reviewed: Yes Mental Status Examination - Cognitive Function Orientation: Person, Place, Situation Memory: Impaired Attention: WNL Concentration: WNL Association: WNL Fund of Knowledge: Poor - Mood Mood: Anxious - Affect Affect: Constricted - Speech Speech: Soft - Formal Thought Process Formal Thought Process: Delusions - Suicidal Ideation Suicidal Ideation: No - Homicidal Ideation Homicidal Ideation: No Goal/Treatment Plan - Goal/Treatment Plan Need for Continued Stay: Remain at risks for inpatient hospitalization, Discharge may exacerbated symptoms Progress Toward Problem(s) and Goals/Treatment Plan: will continue to stabilize the pt on depakote and haldol and titrate as needed to address the hallucinations and engage pt in therapy and groups. d/c plans as per dr leonardo. Estimated Date of D/C: 06/24/18
[2018-06-26] MEDS: Divalproex 250 mg ER (ONCE DAILY formulation) PO SCH (21:27)
--- NOTE | 2018-06-27 11:18 | PCM.PYCHPN ---
Psychiatric Progress Note - Psychiatric Progress Note Patient seen today, length of contact: Pt evaluated, case discussed w/ team, chart reviewed Patient Chief Complaint: I wish I could go to a halfway Problems Identified/Issues Discussed: pt evaluated,stated mood is fine , appropriate affect , no reported changes in sleep or appetite, attending groups, no reported episodes of agitation, continues to have fixed cheondoism delusions pt denied command hallucinations , denied suicidal or homicidal ideation Medical Problems: pt has hx of schizoaffective disorder, hx of previous hospitalizations but unable to give details DSM 5 Symptoms Update: schizoaffective disorder borderline intellectual function Medication Change: No Medical Record Reviewed: Yes Mental Status Examination - Cognitive Function Orientation: Person, Place, Situation Memory: Impaired Attention: WNL Concentration: WNL Association: WNL Fund of Knowledge: Poor - Mood Mood: Anxious - Affect Affect: Constricted - Speech Speech: Soft - Formal Thought Process Formal Thought Process: Delusions - Suicidal Ideation Suicidal Ideation: No - Homicidal Ideation Homicidal Ideation: No Goal/Treatment Plan - Goal/Treatment Plan Need for Continued Stay: Remain at risks for inpatient hospitalization, Discharge may exacerbated symptoms Progress Toward Problem(s) and Goals/Treatment Plan: haldol 20mg qhs, cogentin 1mg qhs / haldol decanoate 50mg IM qmonth,first dose 06/15/18 depakote 750mg qhs disposition planning Estimated Date of D/C: 06/24/18
[2018-06-27] MEDS: Divalproex 250 mg ER (ONCE DAILY formulation) PO SCH (21:21)
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
[2018-06-28] MEDS ORDERED: Tuberculin 5 Units/0.1 ml Inj ID ONE (11:28)
[2018-06-28] MEDS: Divalproex 250 mg ER (ONCE DAILY formulation) PO SCH (21:07)
[2018-06-29 09:05] VITALS: RESP 18
--- NOTE | 2018-06-29 14:14 | PCM.PYCHPN ---
Psychiatric Progress Note - Psychiatric Progress Note Patient seen today, length of contact: Pt evaluated, case discussed w/ team, chart reviewed Patient Chief Complaint: I am excited about the new place Problems Identified/Issues Discussed: pt evaluated,with treatment team, reported anxious and excited about moving to new place , pt compliant with medications no reported side effects , no reported changes in sleep or appetite pt denied command hallucinations , denied suicidal or homicidal ideation Medical Problems: pt has hx of schizoaffective disorder, hx of previous hospitalizations but unable to give details DSM 5 Symptoms Update: 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 Medication Change: No Medical Record Reviewed: Yes Mental Status Examination - Cognitive Function Orientation: Person, Place, Situation Memory: Impaired Attention: WNL Concentration: WNL Association: WNL Fund of Knowledge: Poor - Mood Mood: Anxious - Affect Affect: Constricted - Speech Speech: Soft - Formal Thought Process Formal Thought Process: Delusions - Suicidal Ideation Suicidal Ideation: No - Homicidal Ideation Homicidal Ideation: No Goal/Treatment Plan - Goal/Treatment Plan Need for Continued Stay: Remain at risks for inpatient hospitalization, Discharge may exacerbated symptoms Progress Toward Problem(s) and Goals/Treatment Plan: haldol 20mg qhs, cogentin 1mg qhs / haldol decanoate 50mg IM qmonth,first dose 06/15/18 depakote 750mg qhs disposition planning Estimated Date of D/C: 06/24/18
[2018-06-29] MEDS: Divalproex 250 mg ER (ONCE DAILY formulation) PO SCH (21:06)
[2018-06-30 09:16] VITALS: BP 130/85; PULSE 86; TEMP 98
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
== END 2018-06-30 14:50 | disposition home or self-care (01) | DRG 430 ==
LOC: H.ER 17:52 → H.ERHOLD 23:00 → H.PSYCH 05-18 02:08
PROVIDERS: ADMIT Psychiatry & Neurology Psychiatry; ATTEND Psychiatry & Neurology Psychiatry
PROC: GZHZZZZ Group Psychotherapy (ICD-10-PCS; principal; 2018-05-17)
PROC: GZ58ZZZ Individual Psychotherapy, Cognitive-Behavioral (ICD-10-PCS; 2018-05-17)
DX: F25.0 Schizoaffective disorder, bipolar type (principal); R41.83 Borderline intellectual functioning; F94.0 Selective mutism; F41.9 Anxiety disorder, unspecified; R45.850 Homicidal ideations